=== PATIENT | male | born 1940 | race Caucasian/White ===

== ENCOUNTER 2018-12-05 22:38 | Observation (INO) | payer MEDICARE ==
[~2018-12-05] VITALS: Ht 175.3 cm; Wt 111.8 kg
[2018-12-05] MEDS ORDERED: CLOP75 PO (22:51)
[2018-12-05] MEDS ORDERED: ATOR40TA PO (22:51)
[2018-12-05] MEDS ORDERED: OMEP20ER PO (22:52)
[2018-12-05] MEDS ORDERED: LOSA50 PO (22:52)
[2018-12-05] MEDS ORDERED: AMLO5 PO (22:52)
[2018-12-05] MEDS ORDERED: ALLO300 PO (22:53)
[2018-12-05] MEDS ORDERED: METO50ER PO (22:53)
[2018-12-05] MEDS ORDERED: TRIA50 PO (22:54)
[2018-12-05 23:02] LABS: BASOPHILS ABSOLUTE AUTO 0.06 K/mm3 (0.00-0.23); BASOPHILS PERCENT AUTO 1 % (0-2); EOSINOPHILS PERCENT AUTO 2 % (0-6); Hematocrit 34.8 % (37.0-53.0); Hemoglobin 10.4 g/dL (13.5-17.5); IMMATURE GRAN ABSOLUTE AUTO 0.01 K/mm3 (0.00-0.10); IMMATURE GRAN PERCENT AUTO 0 % (0-1); LYMPHOCYTES ABSOLUTE AUTO 1.71 K/mm3 (0.84-5.20); LYMPHOCYTES PERCENT AUTO 30 % (21-46); MONOCYTES ABSOLUTE AUTO 0.56 K/mm3 (0.16-1.47); MONOCYTES PERCENT AUTO 10 % (4-13); Mean Corpuscular HGB 25.1 pg (26.0-34.0); Mean Corpuscular HGB Conc 29.9 g/dL (31.5-36.5); Mean Corpuscular Volume 84 fL (80-100); Mean Platelet Volume 10.6 fL (9.1-12.4); NEUTROPHILS ABSOLUTE AUTO 3.26 K/mm3 (1.96-9.15); NEUTROPHILS PERCENT AUTO 57 % (41-73); Platelet Count 198 K/mm3 (150-400); RDW Coefficient Variation 23.9 % (11.7-14.2); RDW Standard Deviation 72.6 fL (35.1-46.3); Red Blood Cell Count 4.14 M/mm3 (4.30-5.90)
[2018-12-05 23:27] LABS: Alanine Aminotransfer (ALT/SGP 33 U/L (12-78); Albumin, Blood 3.9 g/dL (3.4-5.0); Albumin/Globulin Ratio 1.4 (0.8-1.8); Alk Phos 92 U/L (50-136); Anion Gap 10 mmol/L (6-16); Aspartate Aminotrans (AST/SGOT 36 U/L (12-37); Bilirubin, Total 0.5 mg/dL (0.1-1.0); Blood Urea Nitrogen 20 mg/dL (8-24); Bun/Creatinine Ratio 14.7 (12.0-20.0); CO2, Blood 22 mmol/L (21-32); Calcium, Blood 8.1 mg/dL (8.5-10.1); Chloride, Blood 113 mmol/L (98-108); Creatinine, Blood 1.36 mg/dL (0.60-1.20); Globulin, Blood 2.8 g/dL (2.2-4.0); Glomerular Filtration Rate 54 (60-); Glucose, Blood 100 mg/dL (70-99); Potassium, Blood 3.8 mmol/L (3.5-5.5); Sodium, Blood 145 mmol/L (136-145); Total Protein, Blood 6.7 g/dL (6.4-8.2); Troponin I <0.015 ng/mL (0.000-0.040)
--- NOTE | 2018-12-06 07:06 | NUR ---
l arm pain remains reduced by medication, call light in reach, saline locked, room air, able to walk to bathroom, continent, bsr provided to daystaff
[2018-12-06 07:30] LABS: Hematocrit 34.8 % (37.0-53.0); Hemoglobin 10.3 g/dL (13.5-17.5); Mean Corpuscular HGB 24.6 pg (26.0-34.0); Mean Corpuscular HGB Conc 29.6 g/dL (31.5-36.5); Mean Corpuscular Volume 83 fL (80-100); Mean Platelet Volume 10.4 fL (9.1-12.4); Platelet Count 178 K/mm3 (150-400); RDW Coefficient Variation 23.7 % (11.7-14.2); RDW Standard Deviation 71.2 fL (35.1-46.3); Red Blood Cell Count 4.18 M/mm3 (4.30-5.90); White Blood Cell Count 5.06 K/mm3 (4.00-11.30)
[2018-12-06 07:50] LABS: CPK Creatine Kinase 651 U/L (39-308); Troponin I <0.015 ng/mL (0.000-0.040)
[2018-12-06 07:54] LABS: Albumin, Blood 3.7 g/dL (3.4-5.0); Albumin/Globulin Ratio 1.2 (0.8-1.8); Bilirubin, Total 0.6 mg/dL (0.1-1.0); Bun/Creatinine Ratio 14.7 (12.0-20.0); Calcium, Blood 8.2 mg/dL (8.5-10.1); Creatinine, Blood 1.43 mg/dL (0.60-1.20); Total Protein, Blood 6.7 g/dL (6.4-8.2)
[2018-12-06 08:04] LABS: Creatine Kinase MB 7.1 ng/mL (0.0-3.6); Creatine Kinase MB Index 1.1 (0.0-4.0)
--- NOTE | 2018-12-06 11:11 | NUR ---
HOME MEDICATION TRIAMTERENE HOME MEDICATION NOT AVAILABLE AT THIS TIME, REQUESTED PT TO HAVE FAMILY BRING IN
--- NOTE | 2018-12-06 12:33 | NUR ---
ECHOCARDIOGRAM COMPLETE
[2018-12-06 13:34] LABS: CPK Creatine Kinase 568 U/L (39-308); Troponin I <0.015 ng/mL (0.000-0.040)
[2018-12-06 13:49] LABS: Creatine Kinase MB 6.2 ng/mL (0.0-3.6); Creatine Kinase MB Index 1.1 (0.0-4.0)
--- NOTE | 2018-12-06 18:16 | NUR ---
PT PAIN MEDICATIONS CHANGED TO PO ROXICODONE, PER PT WORKING BETTER THAN FENTANYL, CARDIAC STRESS TEST ORDERED FOR, RESTING PART TOMORROW. NO ACUTE CHANGES NOTED THIS SHIFT, WILL CONTINUE TO MONITOR AND REPORT TO ONCOMING RN
--- NOTE | 2018-12-07 07:05 | NUR ---
ready for stress test, npo since midnight except for medication, no complaint of pain, call light in reach, saline locked, SBAR report given to returning day shift
--- NOTE | 2018-12-08 07:41 | NUR ---
12/08/18 0615 AWAKENED FOR AM MEDS. CHEERFUL AND DENIES ANY S/S OR DISCOMFORT. AWAITING SECOND PART OF STRESS TEST.
--- NOTE | 2018-12-08 17:56 | NUR ---
PATIENT DID NOT WANT TO EAT DINNER DUE TO BEING DISCHARGED AND WANTS TO EAT AT HOME. RN NOTIFIED.
--- NOTE | 2018-12-08 18:15 | NUR ---
DISCHARGE PT VERB UNDERSTANDING OF DC INSTRUCTIONS. PERSONAL BELONGINGS WITH PT. PT DECLINED WC RIDE OUT. AMBULATES IND WITH STEADY GAIT ACCOMPANIED BY FAMILY.
== END 2018-12-08 18:12 | disposition home or self-care (01) ==
LOC: ER 22:38 → MEDS 22:39
PROVIDERS: Emergency Medicine; Internal Medicine; ADMIT Internal Medicine
DX: R07.9 Chest pain, unspecified (principal); M25.512 Pain in left shoulder; I10 Essential (primary) hypertension; I25.10 Atherosclerotic heart disease of native coronary artery without angina pectoris; K21.9 Gastro-esophageal reflux disease without esophagitis; E78.00 Pure hypercholesterolemia, unspecified; M10.9 Gout, unspecified; Z86.73 Personal history of transient ischemic attack (TIA), and cerebral infarction without residual deficits; Z79.899 Other long term (current) drug therapy; Z79.01 Long term (current) use of anticoagulants; Z88.8 Allergy status to other drugs, medicaments and biological substances
CPT/HCPCS: 36415; 71046; 73030; 78452; 80053; 82550; 82553; 84484; 85025; 85027; 85651; 86140; 93005; 93010; 93017; 93306; 96372; 96374; 96375; 96376; 99285-25; A9500; G0378; J0706; J1170; J1650; J1885; J2785; J3010; J7512

== ENCOUNTER 2018-12-11 23:41 | Emergency (ER) | payer MEDICARE ==
[~2018-12-11] VITALS: Ht 175.3 cm; Wt 110.2 kg
[~2018-12-11 23:41] MED LIST: ALLO300 PO; AMLO5 PO; ATOR40TA PO; CLOP75 PO; LOSA50 PO; METO50ER PO; OMEP20ER PO; TRIA50 PO
[2018-12-12 00:53] LABS: BASOPHILS ABSOLUTE AUTO 0.05 K/mm3 (0.00-0.23); BASOPHILS PERCENT AUTO 1 % (0-2); EOSINOPHILS ABSOLUTE AUTO 0.05 K/mm3 (0.00-0.68); EOSINOPHILS PERCENT AUTO 1 % (0-6); Hematocrit 33.4 % (37.0-53.0); Hemoglobin 9.8 g/dL (13.5-17.5); IMMATURE GRAN ABSOLUTE AUTO 0.02 K/mm3 (0.00-0.10); IMMATURE GRAN PERCENT AUTO 0 % (0-1); LYMPHOCYTES ABSOLUTE AUTO 0.98 K/mm3 (0.84-5.20); LYMPHOCYTES PERCENT AUTO 14 % (21-46); MONOCYTES PERCENT AUTO 8 % (4-13); Mean Corpuscular HGB 24.9 pg (26.0-34.0); Mean Corpuscular HGB Conc 29.3 g/dL (31.5-36.5); Mean Corpuscular Volume 85 fL (80-100); Mean Platelet Volume 11.3 fL (9.1-12.4); NEUTROPHILS ABSOLUTE AUTO 5.58 K/mm3 (1.96-9.15); NEUTROPHILS PERCENT AUTO 77 % (41-73); Platelet Count 213 K/mm3 (150-400); RDW Coefficient Variation 22.5 % (11.7-14.2); RDW Standard Deviation 69.9 fL (35.1-46.3); Red Blood Cell Count 3.94 M/mm3 (4.30-5.90); White Blood Cell Count 7.28 K/mm3 (4.00-11.30)
[2018-12-12 01:14] LABS: Troponin I <0.015 ng/mL (0.000-0.040)
[2018-12-12 01:15] LABS: Alanine Aminotransfer (ALT/SGP 28 U/L (12-78); Albumin, Blood 3.3 g/dL (3.4-5.0); Albumin/Globulin Ratio 1.2 (0.8-1.8); Alk Phos 84 U/L (50-136); Anion Gap 6 mmol/L (6-16); Aspartate Aminotrans (AST/SGOT 20 U/L (12-37); Bilirubin, Total 0.3 mg/dL (0.1-1.0); Blood Urea Nitrogen 19 mg/dL (8-24); CO2, Blood 23 mmol/L (21-32); Calcium, Blood 7.8 mg/dL (8.5-10.1); Chloride, Blood 114 mmol/L (98-108); Creatinine, Blood 1.19 mg/dL (0.60-1.20); Globulin, Blood 2.8 g/dL (2.2-4.0); Glomerular Filtration Rate >60 (60-); Glucose, Blood 94 mg/dL (70-99); Potassium, Blood 3.9 mmol/L (3.5-5.5); Sodium, Blood 143 mmol/L (136-145); Total Protein, Blood 6.1 g/dL (6.4-8.2)
[2018-12-12] MEDS ORDERED: Percocet 5-3251 EACH PO (02:00)
[2018-12-12] MEDS ORDERED: ONDA4ODT MM (02:00)
== END 2018-12-12 02:19 | disposition home or self-care (01) ==
LOC: ER 23:41
PROVIDERS: Physician Assistant
DX: S36.039A Unspecified laceration of spleen, initial encounter (principal); M25.512 Pain in left shoulder; I25.10 Atherosclerotic heart disease of native coronary artery without angina pectoris; E78.00 Pure hypercholesterolemia, unspecified; M10.9 Gout, unspecified; Z88.8 Allergy status to other drugs, medicaments and biological substances; Z79.899 Other long term (current) drug therapy; Z87.891 Personal history of nicotine dependence; X58.XXXA Exposure to other specified factors, initial encounter
CPT/HCPCS: 74176; 80053; 84484; 85025; 93005; 93010; 96374; 96375; 99284-25; A9270; J2405; J3010